=== PATIENT | female | born 1965 | race Caucasian/White ===

== ENCOUNTER → 2017-04-16 | Outpatient (CLI) | payer BC | LOC: BICMAMMO 16:24 | PROVIDERS: ATTEND Obstetrics & Gynecology | DX: Z12.31 Encounter for screening mammogram for malignant neoplasm of breast (principal); Z80.3 Family history of malignant neoplasm of breast | CPT/HCPCS: 77063; 77067; G0202 ==

== ENCOUNTER 2018-09-24 07:02 | Outpatient (CLI) | payer OTHER ==
[2018-09-24] MEDS ORDERED: Gadobenate Dimeglumine 529 MG/1 ML (20ML VIAL) ONE (09:00)
--- NOTE | 2018-09-24 11:07 | MRI ---
MRI OF THE ABDOMEN WITH AND WITHOUT CONTRAST: INDICATION: A 53-year-old female with a history of rectal cancer with right upper quadrant and right lower quadra nt abdominal pain. TECHNIQUE: Multiplanar, multisequence MR images were obtained of the abdomen utilizing an MRCP protocol with and without IV contrast. 14 cc of MultiHance was utilized for this examination. No comparisons are bhupinder ilable of the abdomen. FINDINGS: There is a 3.6 mm T2 signal defect involving the distal common bile duct suspicious for a small dista l common bile duct stone. There is dilatation of the common bile duct up to 6.7 mm within its mid se gment but just proximal to the cystic duct measuring up to 1 cm. There is mild intrahepatic and extr ahepatic biliary ductal dilatation. No residual intraluminal stones are grossly evident within the g allbladder. The liver demonstrates a normal signal intensity and contour. No focal hepatic lesion is evident. N o suspicious enhancement is demonstrated. The pancreas, adrenal glands, spleen, and right kidney are normal-appearing. There is a small 3 cm cyst involving the inferior pole of the left kidney. No pa thologically enlarged lymph nodes or free fluid are identified. The bone marrow signal intensity giselle ears within normal limits. There is mild degenerative disk disease at L5-S1 with mild thoracolumbar scoliosis. IMPRESSION: 1. Small 3.6 mm stone within the distal right common bile duct causing mild intrahepatic and extrahe patic biliary ductal dilatation. 2. Small left renal cyst. POS: CET
== END 2018-09-24 07:03 | disposition home or self-care (01) ==
LOC: SCSMRI 07:02
PROVIDERS: ATTEND Internal Medicine Gastroenterology
DX: C20 Malignant neoplasm of rectum (principal); R93.5 Abnormal findings on diagnostic imaging of other abdominal regions, including retroperitoneum; R10.31 Right lower quadrant pain; K80.50 Calculus of bile duct without cholangitis or cholecystitis without obstruction; K83.8 Other specified diseases of biliary tract; N28.1 Cyst of kidney, acquired
CPT/HCPCS: 74183; A9577

== ENCOUNTER 2018-09-26 17:35 | Observation (INO) | payer OTHER ==
[2018-09-26 18:29] LABS: #Lymphocytes 1.3 thou/uL (1.20-3.40); #Monocytes 0.3 thou/uL (0.11-0.59); #Neutrophils 3.4 thou/uL (1.40-6.50); %Eosinophils 0.7 % (0.0-10.0); %Lymphocytes 25.2 % (21.0-51.0); %Neutrophils 67.1 % (42.0-75.0); Hemoglobin 13.5 g/dL (12.0-16.0); Mean Corpuscular HGB CONC 34.3 g/dL (32.0-36.0); Mean Corpuscular Hemoglobin 30.1 pg (27.0-31.0); Mean Corpuscular Volume 87.9 fL (78.0-98.0); Mean Platelet Volume 9.7 fL (7.4-10.4); Platelet Count 173 thou/uL (130-400); RBC Distribution Width 11.7 % (11.5-14.5); Red Blood Cell (RBC) Count 4.48 mill/uL (4.20-5.40); White Blood Cell (WBC) Count 5.1 thou/uL (4.8-10.8)
[2018-09-26 18:44] LABS: ALT (SGPT) 22 U/L (8-55); AST (SGOT) 19 U/L (5-34); Albumin 4.1 g/dL (3.5-5.0); Alkaline Phosphatase 65 U/L (40-150); Anion Gap 12 mmol/L (10-20); BUN (Urea Nitrogen) 15 mg/dL (9.8-20.1); Bilirubin, Total 0.4 mg/dL (0.2-1.2); Calc. Creatinine Clearance 0 mL/min (70-130); Calcium 9.3 mg/dL (7.8-10.44); Carbon Dioxide 27 mmol/L (22-29); Chloride 106 mmol/L (98-107); Estimated GFR-MDRD 81; Globulin 2.5 g/dL (2.4-3.5); Glucose 128 mg/dL (70-105); Potassium 3.9 mmol/L (3.5-5.1); Protein, Total 6.6 g/dL (6.0-8.3); Sodium 141 mmol/L (136-145)
[2018-09-26] MEDS ORDERED: Ondansetron ODT 4 MG TAB SL PRN (21:11)
[2018-09-26] MEDS ORDERED: Ondansetron PF 4 MG/2 ML Vial IVP PRN (21:11)
[2018-09-26] MEDS ORDERED: Acetaminophen 325 MG TAB PO PRN (21:11)
[2018-09-26 21:46] VITALS: BMI 21.5
[2018-09-26] MEDS ORDERED: Bisacodyl 10 MG SUPP PR PRN (23:29)
[2018-09-26] MEDS ORDERED: cefTRIAXone\\ROCEPHIN 1 GM in Sodium Chloride 0.9% 100 ML IVPB SCH (23:59)
--- NOTE | 2018-09-27 02:17 | HP ---
HISTORY OF PRESENT ILLNESS: The patient is a 53-year-old female, who recently had an ERCP on Saturday and started having some pain to her right arm area. The patient stated that she was found to have some abdominal pain, underwent an ultrasound which indicated dilated biliary ducts to which point she had an ERCP done on Saturday. The patient stated that she was found to have stones and is supposed to go for a lap mirella on Saturday. The patient stated, however, when she was getting ERCP, they had to stick her twice to get IV access on her right hand. The patient stated that once she got the contrast, she had some burning on her right hand. However, no other reaction was noted and the patient tolerated the procedure well and was discharged home. The patient stated the following day, she started noticing some redness around her right hand area. She denied any fevers or chills. She stated that she went to work and noticed that the erythema streaked all the way up to her arm to which point she got concerned, so she came into the ER for further evaluation. In the ER, the patient was given 1 g of vancomycin and was admitted for further evaluation. PAST MEDICAL HISTORY: The patient has had a history of rectal cancer. PAST SURGICAL HISTORY: She has had hysterectomy and colon cancer resection and also radiation and chemotherapy. She had ileostomy, which was reversed. ALLERGIES: SHE HAS ALLERGIES TO LACTOSE. MEDICATIONS: She takes only probiotic. FAMILY HISTORY: Mother had breast cancer. Father had CAD. REVIEW OF SYSTEMS: All negative except for the ones mentioned above in the HPI. PHYSICAL EXAMINATION: VITAL SIGNS: Temperature of 98.2, 65, 18, and 105/69. GENERAL: She is awake, alert, oriented x3. Does not appear in any distress. HEENT: Normocephalic and atraumatic. No lymphadenopathy noted. Pupils are equal and reactive to light. CV: S1 and S2 present. No murmurs, rubs, or gallops. LUNGS: Clear to auscultation. No rhonchi or wheezes noted. ABDOMEN: Soft and nontender. Bowel sounds are present x2. EXTREMITIES: No edema. Pedal pulses are present x2. SKIN: Her right arm radial pulses palpable. She does have some erythema to her right hand, which tracks around her right hand to the medial aspect. No lymphadenopathy or epitrochlear node was palpable. NEUROVASCULAR: No focal deficits noted. Range of motion to her right wrist was intact. Skin, again some mild erythema to her right hand, tracking all the way up to her right arm. SOCIAL HISTORY: She denies any alcohol use, drug use, or smoking history. She is a full code. Lives with her family. LABORATORY RESULTS: WBCs of 5.1, hemoglobin of 13.5, hematocrit of 39.4, and platelets of 173. Chemistry; sodium of 141, potassium of 3.9, BUN of 15, creatinine 0.75. C-reactive protein was normal. ESR was normal. Glucose was mildly elevated at 128. Lactic acid was 1.2. ASSESSMENT AND PLAN: The patient is a 53-year-old female, who presents to the hospital with worsening right-sided redness and some swelling. 1. Right arm swelling. ER thought she possibly had which definitely is a possibility. However, the patient has no leukocytosis. She is afebrile. She has just mild erythema. She was given 1 g of vancomycin. I do not believe she requires any antibiotics. I recommended warm compresses and I will just prophylactically treat her with some ceftriaxone. We will recheck labs in the morning. This could be secondary to contrast irritation. I have explained in detail to the patient and the patient's family, who is at the bedside. However, we will observe her tonight and see if her right arm erythema worsens. The patient's radial pulse is palpable. There is no deficits that are noted. 2. Deep venous thrombosis prophylaxis. We will put the patient on SCDs. 3. Possible disposition tomorrow if patient continues to improve. If she does spike a fever or has leukocytosis, I will broaden her antibiotics. However, at this point, I do not believe she requires antibiotics given the fact that she is afebrile, has no chills, and has normal white count. Thank you very much. Job ID: [id number]
[2018-09-27 05:41] LABS: #Lymphocytes 1.6 thou/uL (1.20-3.40); #Monocytes 0.3 thou/uL (0.11-0.59); #Neutrophils 2.4 thou/uL (1.40-6.50); %Basophils 0.8 % (0.0-1.0); %Eosinophils 0.7 % (0.0-10.0); %Monocytes 7.3 % (0.0-10.0); %Neutrophils 55.1 % (42.0-75.0); Hemoglobin 13.2 g/dL (12.0-16.0); Mean Corpuscular Hemoglobin 30.1 pg (27.0-31.0); Mean Corpuscular Volume 88.5 fL (78.0-98.0); Mean Platelet Volume 9.1 fL (7.4-10.4); Platelet Count 160 thou/uL (130-400); RBC Distribution Width 11.3 % (11.5-14.5); Red Blood Cell (RBC) Count 4.38 mill/uL (4.20-5.40); White Blood Cell (WBC) Count 4.4 thou/uL (4.8-10.8)
[2018-09-27 06:08] LABS: Anion Gap 8 mmol/L (10-20); BUN (Urea Nitrogen) 12 mg/dL (9.8-20.1); Calc. Creatinine Clearance 92 mL/min (70-130); Carbon Dioxide 28 mmol/L (22-29); Chloride 110 mmol/L (98-107); Estimated GFR-MDRD 90; Glucose 98 mg/dL (70-105); Potassium 4.2 mmol/L (3.5-5.1); Sodium 142 mmol/L (136-145)
[2018-09-27] MEDS ORDERED: Lactinex Tablet PO SCH (09:00)
[2018-09-27 11:24] VITALS: BP 108/76; TEMP 98
== END 2018-09-27 13:48 | disposition home or self-care (01) ==
LOC: SCSER 17:35 → T4-B 19:50 → INTOOBSV 21:18
PROVIDERS: ADMIT Family Medicine; ATTEND Family Medicine
DX: R22.31 Localized swelling, mass and lump, right upper limb (principal); Z85.048 Personal history of other malignant neoplasm of rectum, rectosigmoid junction, and anus; Z91.011 Allergy to milk products; Z79.899 Other long term (current) drug therapy; Z90.49 Acquired absence of other specified parts of digestive tract
CPT/HCPCS: 36415; 80048; 80053; 83605; 85025; 85652; 86140; 87040; 96365; 96367; G0378; J0696; J3370; J3490

== ENCOUNTER 2018-09-29 06:08 | Day surgery (SDC) | payer OTHER ==
[2018-09-26 14:52] VITALS: BMI 21.1
[2018-09-29 07:08] LABS: ALT (SGPT) 18 U/L (8-55); AST (SGOT) 21 U/L (5-34); Albumin 4.2 g/dL (3.5-5.0); Alkaline Phosphatase 64 U/L (40-150); Bilirubin, Direct 0.2 mg/dL (0.1-0.3); Bilirubin, Total 0.8 mg/dL (0.2-1.2); Lipase 30 U/L (8-78); Protein, Total 6.9 g/dL (6.0-8.3)
[2018-09-29] MEDS ORDERED: Iothalamate Meglumine 60% 50 ML VIAL FS ONE (07:24)
[2018-09-29] MEDS ORDERED: Indomethacin 50 MG SUPP ONE (07:24)
[2018-09-29] MEDS ORDERED: Midazolam HCl 2 mg/2 ml Vial ONE (07:30)
[2018-09-29] MEDS ORDERED: Famotidine/PF 20 mg/2ml Vial ONE (07:30)
[2018-09-29] MEDS ORDERED: Levofloxacin 500 mg/D5W 100 ml Premix Bag ONE (07:32)
[2018-09-29] MEDS ORDERED: Fentanyl 100 MCG/2 ML VIAL ONE (07:38)
--- NOTE | 2018-09-29 10:22 | RAD ---
ERCP: HISTORY: Right upper quadrant pain for weeks. History of colon surgery and colon cancer. COMPARISON: Abdominal MRI 5 . FINDINGS: Six portable fluoroscopic images are presented for interpretation. There is dilatation of the common bile duct and intrahepatic ducts. Contrast media does extend into the gallbladder. I cannot defini tely confirm an intraductal calculus on these images. IMPRESSION: Dilated common bile duct and intrahepatic ducts. POS: TPC
--- NOTE | 2018-09-29 11:17 | OP ---
DATE OF PROCEDURE: 09/29/2018 PROCEDURE PERFORMED: Endoscopic retrograde cholangiopancreatography PREPROCEDURE DIAGNOSES: 1. Intermittent right-sided abdominal pain, both upper and lower. 2. Sonogram with dilated bile duct, no stones. MRCP with possible choledocholithiasis, 3.6 mm stone in the mid duct, was called on that study. 3. Abnormal liver functional studies. POSTPROCEDURE DIAGNOSES: 1. Normal-appearing ampulla. 2. A 12 to 15 mm mid bile duct. Minimal intrahepatic ductal dilatation. No overt filling defect seen. 3. No filling defects in the gallbladder. 4. Sphincterotomy was performed. Duct was swept x3 with both 9 and 15 mm balloons with no stones retrieved. Occlusion cholangiogram negative. ANESTHESIA: General endotracheal anesthesia. The patient was given Levaquin 500 mg IV preop and Indocin suppositories 100 mg to reduce risk of post ERCP pancreatitis. RECOMMENDATIONS: Follow up Dr. Berg as directed. DESCRIPTION OF PROCEDURE: The patient was informed of the risks, benefits, and possible complications of endoscopy including perforation, bleeding, reaction to medication, aspiration, and the previous studies and her history were reviewed. Informed consent was obtained. Specifically warning of the risk of post ERCP pancreatitis, bleeding, and perforation. The patient was brought to endoscopy suite, where she was sedated, intubated, and placed in a prone position on the fluoroscopy table. A rail car mechanic view was obtained, which was normal. A side-viewing duodenum scope was advanced through the esophagus, stomach, and to the second and third portions of the duodenum. The ampulla was brought into view, which appeared normal. There was bile extruding from it. Cannulation was obtained in the common bile duct without injecting the pancreatic duct. This was done with a guidewire. Cholangiogram revealed questionable filling defect early on in the mid duct, although with filling the duct completely, there was no defined stone. With regard to the history of the MRCP, a small sphincterotomy was performed and an exchange was made for a balloon catheter. The balloon was injected in the common hepatic duct and cholangiogram and appeared normal. The duct was then swept with no stones or debris coming through. The duct was wider in the midportion, so its exchange was made for 15 mm balloon. This was brought through the duct 2 times with occlusion cholangiogram revealing no filling defects, debris, or stones removed. At the time termination of the procedure, the occlusion cholangiogram was normal and there was spontaneous drainage of contrast from the biliary system both endoscopically and radiographically. It could be that a small stone was passed during the procedure, which was missed, but no conclusive evidence of choledocholithiasis was seen. Job ID: [id number]
[2018-09-29] MEDS ORDERED: Dexamethasone 20 MG/5 ML VIAL ONE (13:29)
[2018-09-29] MEDS ORDERED: Glycopyrrolate 0.2 MG/ML 5 ML SYRINGE ONE (13:29)
[2018-09-29] MEDS ORDERED: Ondansetron PF 4 MG/2 ML Vial ONE (13:29)
[2018-09-29] MEDS ORDERED: Lidocaine 1% PF 5 ML VIAL ONE (13:29)
[2018-09-29] MEDS ORDERED: PROPOFOL 200 MG/20 ML VIAL ONE (13:29)
[2018-09-29] MEDS ORDERED: Rocuronium Bromide 10 MG/ML (10ML VIAL) ONE (13:29)
== END 2018-09-29 11:20 | disposition home or self-care (01) ==
LOC: SDC 06:08
PROVIDERS: ATTEND Internal Medicine Gastroenterology
PROC: 0F7C8ZZ Dilation of Ampulla of Vater, Via Natural or Artificial Opening Endoscopic (ICD-10-PCS; principal; 2018-09-29)
PROC: 0F798ZZ Dilation of Common Bile Duct, Via Natural or Artificial Opening Endoscopic (ICD-10-PCS; principal; 2018-09-29)
DX: K83.8 Other specified diseases of biliary tract (principal); Z91.011 Allergy to milk products; Z85.048 Personal history of other malignant neoplasm of rectum, rectosigmoid junction, and anus
CPT/HCPCS: 36415; 74330; 80076; 83690; J0131; J1100; J1956; J2001; J2250; J2405; J2704; J3010; Q9961; S0028